=== PATIENT | male | born 1975 | race Caucasian/White ===

== ENCOUNTER 2017-04-14 02:00 | Inpatient (IN) | payer OTHER ==
[~2017-04-14] VITALS: Ht 165.1 cm; Wt 72.1 kg
--- NOTE | ~2017-04-14 | PN ---
Unit #: [id number] #: [id number] Patient: BOBBI GATICA [id number] [facility] [address] [place] [address] [id number] I MR#: [id number] NAME: BOBBI GATICA ROOM: P174 Age: 42 Sex: M Admission Date: 04/14/2017 : 1975 Attending Physician: Holly Deluna M.D. Admitting Physician: Holly Deluna M.D. Primary Care Physician: Primary Care Physician Tala MATT NOTES DATE 04/15/2017 DISCUSSION Mr. Gatica is a 42-year-old, white male who was seen today and chart was reviewed and case was discussed with the staff. He has been anxious, withdrawn and rather seclusive to himself. Meanwhile, he has been cooperative with the treatment recommendations. He has been taking the medication and tolerating them fairly well with no reported side effects. MENTAL STATUS EXAM Middle-aged white male who was casually dressed with fair personal hygiene, appears to be in no acute distress or discomfort. He was awake and alert on interaction with intact orientation. His mood was anxious with congruent affect. His speech was slow and restricted in content. He reports having suicidal ideation but denies any homicidal ideation. Also, denies any auditory or visual hallucinations. His insight and judgement remains slightly impaired. TREATMENT PLAN 1. We will continue him on his current medications and treatment protocol. We will monitor his response to the medication and make further adjustments as needed. 2. We will continue to follow up. Dictated by... Mariajose Martini/preston TD: 04/17/2017 04:29 JOB #: [id number] Unit #: [id number] #: [id number] Patient: BOBBI GATICA WM PROGRESS NOTES Page 1 of 1 X Holly Deluna MD PROGRESS NOTE
--- NOTE | ~2017-04-14 | PA ---
Unit #: [id number] #: [id number] Patient: BOBBI GATICA [id number] [facility] [address] [place] [address] [id number] I MR#: [id number] NAME: BOBBI GATICA ROOM: P174 Age: 42 Sex: M Admission Date: 04/14/2017 : 1975 Date of Assessment: Attending Physician: Holly Deluna M.D. Admitting Physician: Holly Deluna M.D. Primary Care Physician: Primary Care Physician No PSYCHIATRIC ASSESSMENT DATE OF SERVICE 04/14/2017. IDENTIFYING DATA Mr. Gatica is a 42-year-old single white male, who is a resident of [place], [place], and was self-referred to the hospital on a voluntary basis as a transfer from the [facility] in [place]. CHIEF COMPLAINT "I need help." HISTORY OF PRESENT ILLNESS Mr. Gatica is a 42-year-old white male with history of substance abuse and mood disorder, who was at the DC in [place], [place], and he signed himself out because he thought that he was better and reports that he was having bouts of PTSD and reports that he probably was not ready to leave and reports that he has had bouts of psychosis and has not been able to sleep for the past few days and feels like giving up, and he does not trust himself to know if he is going to take all of his medications and reports that he has a history of suicide by taking a bunch of medication in the past and that he aspirated and therefore, decided to come to the hospital. He does report increasing depression, anxiety, irritability, restlessness, paranoia, feelings of hopelessness and helplessness, and suicidal ideations and as such, a recommendation for inpatient level of care for safety and stabilization was made and the patient was transferred to us. SUBSTANCE ABUSE HISTORY The patient reports extensive history of substance abuse including alcohol, cocaine, opioids, and Adderall, and currently, opioids and Adderall appear to be his drug of choice as he reports that he has been abusing Adderall and has been using Suboxone and Lortab on a regular basis. PAST PSYCHIATRIC HISTORY The patient has had a history of inpatient chemical dependency and psychiatric treatment twice at the [facility] in [place] and currently is active in ongoing outpatient psychiatric treatment. PAST MEDICAL HISTORY The patient's medical history is significant for hypertension and traumatic brain injury. ALLERGIES Unit #: [id number] #: [id number] Patient: BOBBI GATICA Erythromycin. PERSONAL AND SOCIAL HISTORY A 42-year-old white male, who reports that he is single, unemployed, and lives by himself and has poor social support system. MENTAL STATUS EXAMINATION Young white male, who was casually dressed with fair personal hygiene, appears to be in no acute distress or discomfort. He was awake and alert on interaction with intact orientation to time, place, and person. His mood was anxious and depressed with a congruent affect. His speech was slow and restricted in content. His thought processes were disorganized with some looseness of associations and flight of ideas and paranoid ideations and suicidal ideations. His insight and judgment remain significantly impaired. DIAGNOSTIC IMPRESSION Psychiatric: Major depressive disorder, recurrent, moderate, with psychosis; posttraumatic stress disorder by history; opioid dependence, moderate, in acute withdrawals; and methamphetamine abuse, moderate. Medical: Hypertension and traumatic brain injury. Stressors: Moderate psychosocial stressors. TREATMENT PLAN 1. The patient has presented with a history of mood disorder and substance abuse and has been decompensating and will need inpatient hospitalization for detoxification, safety, and stabilization. We will start him back on his home medications and we will adjust the medications and monitor response. 2. Supportive therapy was provided to the patient. 3. Safe, structured, and nourishing environment will be provided. ESTIMATED LENGTH OF STAY 4 to 5 days. ABILITY TO HELP SELF Limited. WILLINGNESS TO HELP SELF The patient appears to be willing to help self. STRENGTHS 1. Communicative. 2. Cooperative. PROBLEMS 1. Chronic dysphoric symptoms. 2. Chronic chemical dependency. 3. Poor social support system. DISCHARGE CRITERIA This will be contingent upon the patient's ability to go through detox without having any significant withdrawal symptoms as well as his ability to stay safe to himself, particularly after discharge from the hospital. Dictated by... Unit #: [id number] #: [id number] Patient: BOBBI GATICA Mariajose Martini/lettyl TD: 04/15/2017 18:32 JOB #: [id number] PSYCHIATRIC ASSESSMENT Page 1 of 1 X Holly Deluna MD PSYCHIATRIC ASSESSMENT
--- NOTE | ~2017-04-14 | PN ---
Unit #: [id number] #: [id number] Patient: BOBBI GATICA [id number] [facility] [address] [place] [address] [id number] I MR#: [id number] NAME: BOBBI GATICA ROOM: P174 Age: 42 Sex: M Admission Date: 04/14/2017 : 1975 Attending Physician: Holly Deluna M.D. Admitting Physician: Holly Deluna M.D. Primary Care Physician: Primary Care Physician Tala MATT NOTES DATE OF SERVICE: 04/16/2017 SUBJECTIVE Mr. Gatica is 42-year-old white male, who was seen today and chart was reviewed and case was discussed with the staff. He has been anxious, withdrawn, though has not shown any agitation or irritability, and has been calm and cooperative with treatment recommendations. He has been taking medications and tolerating them fairly well with no reported side effects. MENTAL STATUS EXAMINATION Middle-aged white male, who was casually dressed with fair personal hygiene, appears to be in no acute distress or discomfort. He was awake and alert on interaction with intact orientation. His mood was anxious with a congruent affect. His speech was slow and goal directed. He denies any suicidal or homicidal ideations and also denies any auditory or visual hallucinations. His insight and judgment remain slightly impaired. TREATMENT PLAN 1. We will continue him on his current medications and treatment protocol. We will monitor his response to medications and make further adjustments as needed. 2. We will continue to follow up. Dictated by... Mariajose Martini/partha TD: 04/16/2017 12:04 JOB #: [id number] Unit #: [id number] #: [id number] Patient: BOBBI GATICA WM PROGRESS NOTES Page 1 of 1 X Holly Deluna MD PROGRESS NOTE
--- NOTE | ~2017-04-14 | DS ---
Unit #: [id number] #: [id number] Patient: BOBBI GATICA [id number] [facility] [address] [place] [address] [id number] I MR#: [id number] NAME: BOBBI GATICA ROOM: P174 Age: 42 Sex: M Admission Date: 04/14/2017 : 1975 Discharge Date: 04/17/2017 Attending Physician: Holly Deluna M.D. Primary Care Physician: Primary Care Physician No DISCHARGE SUMMARY IDENTIFYING DATA Mr. Gatica is a 42-year-old single white male, who is a resident of [place], [place], and was self-referred to the hospital on voluntary basis and was transferred from the [facility] in [place], [place]. DISCHARGE DIAGNOSES Psychiatric: Major depressive disorder, recurrent, moderate, with psychosis; posttraumatic stress disorder by history; opioid dependence, moderate and acute withdrawals; methamphetamine abuse, moderate. Medical: Hypertension and traumatic brain injury. HISTORY OF PRESENT ILLNESS Please see initial psychiatric evaluation for details. PAST PSYCHIATRIC HISTORY Please see initial psychiatric evaluation for details. PAST MEDICAL HISTORY Please see initial psychiatric evaluation for details. HOSPITAL COURSE The patient was admitted to the adult psychiatric and chemical dependency unit at [facility] and was oriented to the hospital environment. Routine p.r.n. medications were initiated, and he was started back on his home medications and medications were adjusted. However, he was seen to be minimally interested in treatment and changing his story about his presentation particularly in regard to suicidal ideations and stating that he just wants to get back to the [place] and get his treatment there and was denying any suicidal ideations, intent, or plan and was not seen to be danger to self or anyone else, and as such, it was decided that he will be discharged home and will continue treatment on an outpatient basis. DISCHARGE CONDITION Stable. PROGNOSIS Fair. Dictated by... Holly Deluna M.D. Unit #: [id number] #: [id number] Patient: BOBBI GATICA IAA/modl TD: 04/17/2017 22:40 JOB #: [id number] DISCHARGE SUMMARY Page 1 of 1 X Holly Deluna MD DISCHARGE SUMMARY
--- NOTE | ~2017-04-14 | HP ---
Unit #: [id number] #: [id number] Patient: RAYRAY ANDERS [id number] [place] [address] [id number] I MR#: [id number] NAME: RAYRAY ANDERS ROOM: P174 Age: 42 Sex: M Admission Date: 04/14/2017 : 1975 Attending Physician: Holly Deluna M.D. Admitting Physician: Holly Deluna M.D. Primary Care Physician: Primary Care Physician No HISTORY AND PHYSICAL HISTORY OF PRESENT ILLNESS Rayray is a 42-year-old male admitted on 04/14/2017 to [facility] for detox from Suboxone. PAST MEDICAL HISTORY None. PAST SURGICAL HISTORY None. ALLERGIES Erythromycin. SOCIAL HISTORY Smokes 1-1/2 packs of cigarettes daily. No alcohol use. Does report illegal use of Suboxone. He is taking his girlfriend's prescription. He is currently and living with his girlfriend. FAMILY HISTORY Noncontributory. REVIEW OF SYSTEMS CONSTITUTIONAL: No fever or chills. HEENT: Denies any sore throat, ear pain or runny nose. CARDIOVASCULAR: Denies chest pain, irregular heart rhythm or palpitations. CHEST: Denies shortness of breath or cough. No hemoptysis. GASTROINTESTINAL: Denies nausea, vomiting, diarrhea or chronic constipation. ENDOCRINE: Denies history of increased thirst or urination. No recent significant weight loss or gain. GENITOURINARY: Denies dysuria, frequency, or hematuria. SKIN: Denies any rashes. HEMATOLOGIC: Denies history of increased bleeding or bruising. MUSCULOSKELETAL: Denies any hot, swollen joints. No generalized muscle pain. NEUROLOGIC: Denies problems with vision or speech. No frequent, severe headaches. No numbness, tingling or weakness in any extremities. Denies loss of bladder or bowel control. CURRENT MEDICATIONS 1. Hydroxyzine. 2. Prazosin. 3. Trazodone. Unit #: [id number] #: [id number] Patient: RAYRAY ANDERS 4. Gabapentin. 5. BuSpar. PHYSICAL EXAMINATION GENERAL: Alert, oriented, in no acute distress. VITAL SIGNS: Blood pressure 131/97, heart rate 83, respirations 18, temperature 98.4. HEIGHT: 5 feet 5. WEIGHT: 159 pounds. SKIN: Warm and dry without rash or lesion. HEENT: Normocephalic. TMs not viewed. Oral and nasal passages clear. Conjunctivae clear. PERRLA. EOMs intact. NECK: Supple without lymphadenopathy or thyromegaly. HEART: Regular rate and rhythm without murmur. LUNGS: Clear. ABDOMEN: Soft, nontender, without masses or hepatosplenomegaly. : Not done. EXTREMITIES: No evidence of cyanosis, clubbing or edema. Moves all without focal deficit. NEUROLOGICAL: Grossly within normal limits. Cranial Nerves: II: Visual trejo are intact. III, IV AND : Extraocular movements are intact. Pupils are equal, round and reactive to light. V: Facial sensation is grossly normal. VII: Facial movements and expression are normal. VIII: Auditory acuity grossly intact. IX, X: Uvula is midline. Phonation is normal. XI: Patient shrugs shoulders and turns head normally. XII: Tongue protrudes in the midline. Sensory and Motor Function: Sensory and motor sensation is grossly normal. Motor: moves all extremities well. Coordination: Gait is normal. Deep Tendon Reflexes: Intact. IMPRESSION Psychiatric admission. RECOMMENDATIONS PSYCHIATRIC: Per psychiatrist. MEDICAL: No contraindication to participate in facility's activities. MEDICAL PROGNOSIS Good. MEDICAL CONDITION Stable. Dictated by... Linda Villeda/dez TD: 04/14/2017 22:43 JOB #: [id number] Unit #: [id number] #: [id number] Patient: RAYRAY ANDERS HISTORY AND PHYSICAL Page 1 of 1 X MOODY JANSEN APRN HISTORY AND PHYSICAL
[2017-04-15 11:27] LABS: BASOPHIL# 0.1 X10e3 (0-0.3); BASOPHIL% 0.6 % (0-2.5); EOSINOPHIL# 0.2 X10e3 (0-0.7); HEMATOCRIT 45.1 % (38.0-50.0); HEMOGLOBIN 15.2 gm/dL (13.0-16.0); LYMPHOCYTE# 4.2 X10e3 (1.0-3.5); LYMPHOCYTE% 46.6 % (17.0-45.0); MEAN CELL VOLUME 87.7 FL (83-96); MEAN CORPUSCULAR HEMOGLOBIN 29.5 PG (28-34); MEAN CORPUSCULAR HGB CONC 33.6 g/dL (30-36); MEAN PLATELET VOLUME 8.3 FL (6.5-11.5); MONOCYTE# 0.6 X10e3 (0-1.0); MONOCYTE% 6.1 % (3.0-12.0); NEUTROPHIL# 4.1 X10e3 (1.5-7.1); NEUTROPHIL% 44.7 % (40-75); PLATELET COUNT 355 X10e3 (140-420); RED BLOOD COUNT 5.15 X10e (3.90-5.60); RED CELL DISTRIBUTION WIDTH 13.6 % (11.0-15.5); WHITE BLOOD COUNT 9.1 X10e3 (4.0-10.5)
[2017-04-15 11:34] LABS: DIFF IND NO
[2017-04-15 11:46] LABS: ALBUMIN SERUM 4.4 g/dL (3.5-5.0); BILIRUBIN,TOTAL 0.2 mg/dL (0.2-2.0); BUN/CREATININE RATIO 18.75; CALCIUM SERUM 9.8 mg/dL (8.4-10.2); CREATININE SERUM 0.8 mg/dL (0.6-1.4); GLOM FILT RATE Estimated 110.2 mL/min (>60); POTASSIUM 4.4 mmol/L (3.5-5.1); PROTEIN TOTAL SERUM 7.3 g/dL (6.0-8.3)
[2017-04-16 12:27] LABS: URINE APPEARANCE CLEAR; URINE BILIRUBIN NEG (NEG); URINE BLOOD NEG (NEG); URINE COLOR YELLOW; URINE GLUCOSE NEG (NEG); URINE KETONE NEG (NEG); URINE LEUKOCYTE ESTERASE NEG (NEG); URINE NITRATE NEG (NEG); URINE PROTEIN NEG (NEG); URINE SPECIFIC GRAVITY 1.006 (1.003-1.035); URINE UROBILINOGEN 0.2 MG/DL (NEG)
[2017-04-16 12:38] LABS: AMPHETAMINE NEG (NEG); BARBITURATES NEG (NEG); BENZODIAZEPINES NEG (NEG); COCAINE NEG (NEG); MARIJUANA NEG (NEG); OPIATES NEG (NEG); TRICYCLIC ANTIDEPRESSANTS NEG (NEG); U METHADONE NEG (NEG)
== END 2017-04-17 13:55 | disposition home or self-care (01) | DRG 885 ==
LOC: P1E 10:30
PROVIDERS: Psychiatry & Neurology Psychiatry
PROC: HZ2ZZZZ Detoxification Services for Substance Abuse Treatment (ICD-10-PCS; principal; 2017-04-14)
DX: F33.3 Major depressive disorder, recurrent, severe with psychotic symptoms (principal); F15.20 Other stimulant dependence, uncomplicated; R45.851 Suicidal ideations; F11.23 Opioid dependence with withdrawal; F43.10 Post-traumatic stress disorder, unspecified; I10 Essential (primary) hypertension; Z87.820 Personal history of traumatic brain injury; Z88.1 Allergy status to other antibiotic agents; F17.210 Nicotine dependence, cigarettes, uncomplicated
CPT/HCPCS: 80053; 80307; 81003; 85025; 86592